=== PATIENT | female | born 1970 ===

== ENCOUNTER 2016-10-04 03:03 | Emergency (ER) | payer BC ==
[2016-10-04 03:03] VITALS: BMI 25.6
[2016-10-04 03:18] VITALS: TEMP 98
--- NOTE | 2016-10-04 03:25 | ED PDOC ---
Arrival/HPI - General Chief Complaint: Chest Pain Time Seen by Provider: 10/04/16 03:13 Historian: Patient - History of Present Illness Narrative History of Present Illness (Text): 10/04/16 03:22 Delma Rodriguez is a 46 year old female who presents to the Emergency department complaining of right-sided chest pain/RUQ pain. Patient states she has been experiencing gradually worsening RUQ pain with associated chest pain. Patient states pain is worse with deep inspiration. Patient states she had chicken and chocolate cake for dinner yesterday evening. Patient denies any history of tobacco abuse, fever, chills, shortness of breath, nausea, vomiting, diarrhea, urinary symptoms, back pain, neck pain, headache, dizziness , or any other complaints. Time/Duration: Other (tonight) Symptom Onset: Gradual Symptom Course: Worsening Activities at Onset: Rest, Light Context: Home Past Medical History - Provider Review Nursing Documentation Reviewed: Yes - Infectious Disease Hx of Infectious Diseases: None - Past Medical History Past Medical History: No Previous - Cardiac Hx Cardiac Disorders: No Hx Pacemaker: No - Pulmonary Hx Respiratory Disorders: No - Neurological Hx Neurological Disorder: No Hx Paralysis: No - HEENT Hx HEENT Disorder: No - Renal Hx Renal Disorder: No - Endocrine/Metabolic Hx Endocrine Disorders: No - Hematological/Oncological Hx Blood Disorders: Yes Hx Blood Transfusions: Yes () Hx Blood Transfusion Reaction: No - Integumentary Hx Dermatological Disorder: No - Musculoskeletal/Rheumatological Hx Musculoskeletal Disorders: No - Gastrointestinal Hx Gastrointestinal Disorders: Yes Other/Comment: "bacteria in stomach" - Genitourinary/Gynecological Hx Genitourinary Disorders: No - Psychiatric Hx Depression: Yes Hx Substance Use: No - Past Surgical History Past Surgical History: No Previous - Anesthesia Hx Anesthesia: No - Suicidal Assessment Feels Threatened In Home Enviroment: No Family/Social History - Physician Review Nursing Documentation Reviewed: Yes Family/Social History: No Known Family HX Smoking Status: Never Smoked Hx Alcohol Use: No Hx Substance Use: No Hx Substance Use Treatment: No Allergies/Home Meds Allergies/Adverse Reactions: Allergies No Known Allergies Allergy (Verified 03/11/16 16:39) Home Medications: Home Meds Medication Instructions Recorded Confirmed Sertraline [Zoloft] 50 mg PO HS 03/11/16 10/04/16 traZODone [trazODONE HYDROCHLORIDE] 50 mg PO HS 03/11/16 10/04/16 Review of Systems - Physician Review All systems were reviewed & negative as marked: Yes - Review of Systems Constitutional: Normal. absent: Fevers Eyes: Normal ENT: Normal Respiratory: Normal. absent: SOB, Cough Cardiovascular: Chest Pain (+right-sided chest pain) Gastrointestinal: Abdominal Pain (+RUQ pain). absent: Diarrhea, Nausea, Vomiting Genitourinary Female: Normal. absent: Dysuria, Frequency, Hematuria, Urine Output Changes Musculoskeletal: Normal. absent: Back Pain, Neck Pain Skin: Normal. absent: Rash Neurological: Normal. absent: Headache, Dizziness Endocrine: Normal Hemo/Lymphatic: Normal Psychiatric: Normal Physical Exam Vital Signs Reviewed: Yes Vital Signs Temp Pulse Resp BP Pulse Ox 10/04/16 08:30 98 F 75 19 127/62 100 10/04/16 06:15 60 18 130/90 98 10/04/16 03:17 98 F 78 21 143/99 H 100 Temperature: Afebrile Blood Pressure: Normal Pulse: Regular Respiratory Rate: Normal Appearance: Positive for: Well-Appearing, Non-Toxic, Comfortable Pain Distress: None Mental Status: Positive for: Alert and Oriented X 3 - Systems Exam Head: Present: Atraumatic, Normocephalic Pupils: Present: PERRL Extroacular Muscles: Present: EOMI Conjunctiva: Present: Normal Mouth: Present: Moist Mucous Membranes Neck: Present: Normal Range of Motion Respiratory/Chest: Present: Clear to Auscultation, Good Air Exchange. No: Respiratory Distress, Accessory Muscle Use Cardiovascular: Present: Regular Rate and Rhythm, Normal S1, S2. No: Murmurs Abdomen: Present: Tenderness (RUQ tenderness), Normal Bowel Sounds. No: Distention, Peritoneal Signs Back: Present: Normal Inspection. No: CVA Tenderness, Midline Tenderness, Paraspinal Tenderness Upper Extremity: Present: Normal Inspection. No: Cyanosis, Edema Lower Extremity: Present: Normal Inspection. No: Edema Neurological: Present: GCS=15, CN II-XII Intact, Speech Normal Skin: Present: Warm, Dry, Normal Color. No: Rashes Psychiatric: Present: Alert, Oriented x 3, Normal Insight, Normal Concentration Medical Decision Making ED Course and Treatment: 10/04/16 03:22 Impression: 46 year old female complaining of RUQ/right-sided chest pain tonight. Plan: -- EKG -- Labs, lipase, cardiac enzymes, amylase, blood cultures -- Urinalysis -- IV fluids -- Zofran -- Protonix -- Pepcid -- Toradol -- Reassess and disposition Prior Visits: Notes and results from previous visits were reviewed. On 03/11/2016, pt was seen in the Emergency department for LLQ pain. Pt was d/c home. Progress Notes: Reviewed EKG, NSR at [address]-segment elevations or depressions, no T-wave inversions, normal intervals. Re-evaluation Time: 07:25 Reassessment Condition: Re-examined, Improved - Lab Interpretations Microbiology Results: Microbiology Results 10/04/16 04:15 Blood-Venous Blood Culture - Preliminary NO GROWTH AFTER 24 HOURS 10/04/16 03:45 Blood-Venous Blood Culture - Preliminary NO GROWTH AFTER 24 HOURS Lab Results: 10/04/16 03:45 10/04/16 03:45 Lab Results 10/04/16 04:48: Urine Color Yellow, Urine Appearance Clear, Urine pH 6.0, Ur Specific Amalia 1.020, Urine Protein Negative, Urine Glucose (UA) Negative, Urine Ketones Negative, Urine Blood Trace-lysed H, Urine Nitrate Negative, Urine Bilirubin Negative, Urine Urobilinogen 0.2, Ur Leukocyte Esterase Negative , Urine RBC Negative, Urine WBC Negative, Ur Epithelial Cells 0 - 2, Urine Bacteria Mod 10/04/16 03:45: Sodium 140, Potassium 3.5 L, Chloride 106, Carbon Dioxide 24, Anion Gap 14, BUN 19, Creatinine 0.7, Est GFR ( Amer) > 60, Est GFR (Non- Af Amer) > 60, Random Glucose 105, Calcium 9.1, Total Bilirubin 0.2, AST 34, ALT 35, Alkaline Phosphatase 79, Lactate Dehydrogenase 568, Total Creatine Kinase 116, Troponin I < 0.01, Total Protein 7.7, Albumin 4.2, Globulin 3.5, Albumin/Globulin Ratio 1.2, Amylase 106, Lipase 231 10/04/16 03:45: PT 10.4, INR 0.96, APTT 24.7 10/04/16 03:45: WBC 9.0 D, RBC 3.91, Hgb 11.6 L, Hct 34.6 L, MCV 88.5, MCH 29.7 , MCHC 33.5, RDW 13.1, Plt Count 298, MPV 9.3, Gran % 64.5, Lymph % (Auto) 27.9 , [place] % (Auto) 6.8 H, Eos % (Auto) 0.6 L, Baso % (Auto) 0.2, Gran # 5.80, Lymph # 2.5, [place] # 0.6, Eos # 0.1, Baso # 0.02 I have reviewed the lab results: Yes - RAD Interpretation Radiology Orders: 10/04/16 04:53 ABD & PELVIS W/O PO OR IV CONT [CT] Stat - EKG Interpretation Interpreted by ED Physician: Yes Type: 12 lead EKG - Medication Orders Current Medication Orders: Discontinued Medications Famotidine (Pepcid) 20 mg IVP STAT STA Stop: 10/04/16 03:38 Last Admin: 10/04/16 04:13 Dose: 20 mg Sodium Chloride (Sodium Chloride 0.9%) 1,000 mls @ 100 mls/hr IV .Q10H STA Stop: 10/04/16 13:36 Last Admin: 10/04/16 04:13 Dose: 100 mls/hr Ketorolac Tromethamine (Toradol) 30 mg IVP STAT STA Stop: 10/04/16 03:38 Last Admin: 10/04/16 04:13 Dose: 30 mg Re-Assess: TAMEKA Pain Assessment Document 10/04/16 05:13 GMI (Rec: 10/04/16 08:56 GMI [id number]) Pain Reassessment Is this a pain reassessment? Yes Sleep Is patient sleeping during reassessment? No Presence of Pain Presence of Pain No Ondansetron HCl (Zofran Inj) 4 mg IVP STAT STA Stop: 10/04/16 03:38 Last Admin: 10/04/16 04:14 Dose: 4 mg Pantoprazole Sodium (Protonix Inj) 40 mg IVP STAT STA Stop: 10/04/16 03:48 Last Admin: 10/04/16 04:14 Dose: 40 mg Potassium Chloride (K-Dur 20 Meq Er Tab) 40 meq PO STAT STA Stop: 10/04/16 06:56 Last Admin: 10/04/16 07:25 Dose: 40 meq - Scribe Statement The provider has reviewed the documentation as recorded by the Candice Jean Baptiste Provider Scribe Attestation: All medical record entries made by the Scribe were at my direction and personally dictated by me. I have reviewed the chart and agree that the record accurately reflects my personal performance of the history, physical exam, medical decision making, and the department course for this patient. I have also personally directed, reviewed, and agree with the discharge instructions and disposition. Disposition/Present on Arrival - Present on Arrival Any Indicators Present on Arrival: No History of DVT/PE: No History of Uncontrolled Diabetes: No Urinary Catheter: No History of Decub. Ulcer: No History Surgical Site Infection Following: None - Disposition Have Diagnosis and Disposition been Completed?: Yes Diagnosis: Abdominal pain Disposition: HOME/ ROUTINE Disposition Time: 07:25 Condition: GOOD Discharge Instructions (ExitCare): Acute Abdominal Pain (ED) Prescriptions: Pantoprazole Sodium [Protonix] 40 mg PO DAILY #14 ect Pantoprazole Sodium [Protonix] 40 mg PO DAILY #14 ect Forms: [employer] (Chinese)
[2016-10-04] MEDS ORDERED: Sodium Chloride 0.9% 1,000 ML IV STA (03:37)
[2016-10-04] MEDS ORDERED: Pantoprazole 40 MG in Sodium Chloride 0.9% 100 ML IV STA (03:37)
[2016-10-04 04:06] LABS: BASO # 0.02 K/mm3 (0.0-2.0); BASO % 0.2 % (0.0-3.0); EOS # 0.1 (0.0-0.7); EOS % 0.6 % (1.5-5.0); GRAN # 5.8 (1.4-6.5); GRAN % 64.5 % (50.0-68.0); HEMATOCRIT 34.6 % (36.0-48.0); LYMPH # 2.5 (1.2-3.4); LYMPH % 27.9 % (22.0-35.0); MEAN CELL VOLUME 88.5 fl (80.0-105.0); MEAN CORPUSCULAR HEMOGLOBIN 29.7 pg (25.0-35.0); MEAN CORPUSCULAR HGB CONC 33.5 g/dl (31.0-37.0); MEAN PLATELET VOLUME 9.3 fl (7.0-11.0); MONO # 0.6 (0.1-0.6); MONO % 6.8 % (1.0-6.0); RED CELL DISTRIBUTION WIDTH 13.1 % (11.5-14.5)
[2016-10-04 04:11] LABS: INR 0.96 (0.93-1.08); PARTIAL THROMBOPLASTIN TIME 24.7 Seconds (23.7-30.8)
[2016-10-04 04:15] LABS: ALB/GLOB RATIO 1.2 (1.1-1.8); ALKALINE PHOSPHATASE 79 U/L (38-133); ALT/SGPT 35 U/L (7-56); AMYLASE 106 U/L (35-125); AST/SGOT 34 U/L (15-39); BILIRUBIN,TOTAL 0.2 mg/dL (0.2-1.3); BLOOD UREA NITROGEN 19 mg/dL (7-21); CALCIUM 9.1 mg/dL (8.4-10.5); CARBON DIOXIDE 24 mmol/L (21-33); CHLORIDE 106 mmol/L (98-107); GFR AFRICAN-AMERICAN > 60; GLUCOSE,RANDOM 105 mg/dL (70-110); LIPASE 231 U/L (23-300); POTASSIUM 3.5 mmol/L (3.6-5.0); SODIUM 140 mmol/L (132-148); TOTAL PROTEIN 7.7 g/dL (5.8-8.3)
[2016-10-04 04:31] LABS: TROPONIN I < 0.01 ng/mL
[2016-10-04 05:02] LABS: URINE BILIRUBIN NEGATIVE (NEGATIVE); URINE BLOOD TRACE-LYSED (NEGATIVE); URINE GLUCOSE (UA) NEGATIVE (NEGATIVE); URINE KETONE NEGATIVE (NEGATIVE); URINE LEUKOCYTE ESTERASE NEGATIVE Leu/uL (NEGATIVE); URINE PROTEIN NEGATIVE mg/dL (<30 mg/dL); URINE UROBILINOGEN 0.2 E.U./dL (<1 E.U./dL)
[2016-10-04 05:19] LABS: URINE APPEARANCE CLEAR (CLEAR); URINE COLOR YELLOW (YELLOW)
[2016-10-04 05:53] LABS: URINE BACTERIA MOD (NEG); URINE EPITHELIAL CELLS 0 - 2 /hpf (0-5); URINE RBC NEGATIVE /hpf (0-2); URINE WBC NEGATIVE /hpf (0-6)
[2016-10-04] MEDS ORDERED: Potassium Chloride 20 mEq ER Tab PO STA (06:55)
--- NOTE | 2016-10-04 07:23 | CT ---
EXAM: CT Abdomen and Pelvis Without Intravenous Contrast EXAM DATE/TIME: 10/04/2016 4:53 AM CLINICAL HISTORY: 46 years old, female; Pain; Abdominal pain; Generalized; Additional info: Abd pain TECHNIQUE: Axial computed tomography images of the abdomen and pelvis without intravenous contrast. All CT scans at this facility use one or more dose reduction techniques, viz.: automated exposure control; ma/kV adjustment per patient size (including targeted exams where dose is matched to indication; i.e. head); or iterative reconstruction technique. Coronal and sagittal reformatted images were created and reviewed. COMPARISON: CT - ABD PELVIS PO IV CONTRAST 03/11/2016 7:58:24 PM FINDINGS: Lower thorax: Trace right pleural effusion. Small hiatal hernia. ABDOMEN: Liver: Unremarkable. Gallbladder and bile ducts: Unremarkable. No calcified stones. No ductal dilation. Pancreas: Unremarkable. No ductal dilation. Spleen: Unremarkable. No splenomegaly. Adrenals: Unremarkable. No mass. Kidneys and ureters: Unremarkable. No obstructing stones. No hydronephrosis. Stomach and bowel: Prominent gastric antral wall again noted. Collapsed stomach. No dilatation of small or large bowel. Moderate amount of fecal material from cecum to the proximal descending colon. Scattered small hyperdense foci in distal small bowel and ascending colon, appearance of ingested pills and/or antacids. No mucosal edema. Appendix: Normal. PELVIS: Bladder: Unremarkable. No stones. Reproductive: Unremarkable as visualized. ABDOMEN and PELVIS: Intraperitoneal space: Unremarkable. No free air. No significant fluid collection. Bones/joints: No acute fracture. Soft tissues: Unremarkable. Vasculature: Unremarkable. No abdominal aortic aneurysm. Lymph nodes: No enlarged lymph nodes. IMPRESSION: 1. Prominent wall of the gastric antrum, may be from under distention, clinical correlation to exclude antritis. 2. Trace right pleural effusion. 3. Moderate fecal retention.
[2016-10-04 08:55] VITALS: BP 127/62; PULSE 75; RESP 19; O2SAT 100
--- NOTE | 2016-10-04 10:53 | CARD ---
APPROVED REPORT EKG Measurement Heart [id number] <Conclusion> Normal sinus rhythm Normal ECG
== END 2016-10-04 08:57 | disposition home or self-care (01) ==
LOC: ED 03:03
DX: R10.11 Right upper quadrant pain (principal)
CPT/HCPCS: 74176; 80053; 81001; 82150; 82550; 83615; 83690; 84484; 85025; 85610; 85730; 87040; 93005; 96361; 96374; 96375; 99284; C9113; J1885; J2405; J7040

== ENCOUNTER 2017-04-22 14:14 | Inpatient (IN) | payer BC ==
--- NOTE | 2017-04-22 14:52 | ED PDOC ---
Arrival/HPI - General Time Seen by Provider: 04/22/17 14:46 Historian: Patient - History of Present Illness Narrative History of Present Illness (Text): 04/22/17 14:51 47 y/o female, pmh including gastric ulcer with last endoscopy performed on 2015, nkda, c/o epigastric abdominal pain with nausea/vomiting x 2 weeks. Pt. stated that she has on and off epigastric pain for the past 2 weeks, didn't take any PPI, had 3 episodes of bright red bloody vomiting which she was seen at the [facility] and discharged home, stated that she still has the epigastric pain, bright red vomiting yesterday and today, no fever or chills, no night sweat, no palpitation, no other medical or psychological complaints. Past Medical History - Provider Review Nursing Documentation Reviewed: Yes - Infectious Disease Hx of Infectious Diseases: None - Past Medical History Past Medical History: No Previous - Cardiac Hx Cardiac Disorders: No Hx Pacemaker: No - Pulmonary Hx Respiratory Disorders: No - Neurological Hx Neurological Disorder: No Hx Paralysis: No - HEENT Hx HEENT Disorder: No - Renal Hx Renal Disorder: No - Endocrine/Metabolic Hx Endocrine Disorders: No - Hematological/Oncological Hx Blood Disorders: Yes Hx Blood Transfusions: Yes () Hx Blood Transfusion Reaction: No - Integumentary Hx Dermatological Disorder: No - Musculoskeletal/Rheumatological Hx Musculoskeletal Disorders: No - Gastrointestinal Hx Gastrointestinal Disorders: Yes Other/Comment: "bacteria in stomach" - Genitourinary/Gynecological Hx Genitourinary Disorders: No - Psychiatric Hx Depression: Yes Hx Substance Use: No - Past Surgical History Past Surgical History: No Previous - Anesthesia Hx Anesthesia: No - Suicidal Assessment Feels Threatened In Home Enviroment: No Family/Social History - Physician Review Nursing Documentation Reviewed: Yes Family/Social History: Unknown Family HX Smoking Status: Never Smoked Hx Alcohol Use: No Hx Substance Use: No Hx Substance Use Treatment: No Allergies/Home Meds Allergies/Adverse Reactions: Allergies No Known Allergies Allergy (Verified 03/11/16 16:39) Home Medications: Home Meds Medication Instructions Recorded Confirmed Hydroxyzine Pamoate [Vistaril] 1 tab PO DAILY 04/22/17 04/22/17 Lisdexamfetamine Dimesylate 1 tab PO DAILY 04/22/17 04/22/17 [Vyvanse] Ondansetron ODT [Zofran ODT] 1 tab PO DAILY 04/22/17 04/22/17 buPROPion SR [Wellbutrin SR 150 MG] 1 tab PO DAILY 04/22/17 04/22/17 Review of Systems - Review of Systems Constitutional: absent: Fatigue, Fevers Eyes: absent: Vision Changes ENT: absent: Hearing Changes Respiratory: absent: SOB, Cough Cardiovascular: absent: Chest Pain Gastrointestinal: Abdominal Pain, Nausea, Vomiting Musculoskeletal: absent: Arthralgias, Back Pain Skin: absent: Rash, Pruritis Psychiatric: absent: Anxiety, Depression, Suicidal Ideation Physical Exam Vital Signs Reviewed: Yes Vital Signs Temp Pulse Resp BP Pulse Ox 04/22/17 16:15 79 18 121/79 98 04/22/17 15:27 98.1 F 83 18 123/82 98 Temperature: Afebrile Blood Pressure: Normal Pulse: Regular Respiratory Rate: Normal Appearance: Positive for: Well-Appearing, Non-Toxic, Comfortable Pain Distress: Mild Mental Status: Positive for: Alert and Oriented X 3 - Systems Exam Head: Present: Atraumatic, Normocephalic Pupils: Present: PERRL Extroacular Muscles: Present: EOMI Conjunctiva: Present: Normal Mouth: Present: Moist Mucous Membranes Neck: Present: Normal Range of Motion Respiratory/Chest: Present: Clear to Auscultation, Good Air Exchange. No: Respiratory Distress, Accessory Muscle Use Cardiovascular: Present: Regular Rate and Rhythm, Normal S1, S2. No: Murmurs Abdomen: Present: Tenderness (epigastric tenderness), Normal Bowel Sounds. No: Distention, Peritoneal Signs Rectal: Present: Hemorrhoids, Normal Rectal Tone, Other (Female Blacking Machine Operator black pickler Yoon Porch, guaiac is positive. ). No: Rectal Tenderness, Gross Blood, Melena, Fissures, Nodule/Mass/Lesions Back: Present: Normal Inspection Upper Extremity: Present: Normal Inspection. No: Cyanosis, Edema Lower Extremity: Present: Normal Inspection. No: Edema Neurological: Present: GCS=15, CN II-XII Intact, Speech Normal Skin: Present: Warm, Dry, Normal Color. No: Rashes Psychiatric: Present: Alert, Oriented x 3, Normal Insight, Normal Concentration Medical Decision Making ED Course and Treatment: 04/22/17 15:57 -labs -ekg -cxr and gallbladder sonogram -Guaiac test -IVF/protonix/zofran -observe and reassess 04/22/17 17:30 -EKG: NSR @ 79 BPM, no ST elevation or depression, T wave inversion on lead @ III, compared with previous ekg. -Chest xray: no active disease -Gallbladder sonogram Echogenic liver may be seen in setting of hepatic parenchymal disease or fatty infiltration. Question 1.7 x 1.1 x 1.4 cm cyst versus fluid near the pancreatic head; recommend CT with oral and IV contrast for further evaluation. -Labs are non-significant except hgb 11.4 from 11.6 -Guaiac is positive but no active bleeding at this time, IV protonix ordered, will admit the patient for observation with cbc trending. -I discussed all the lab result including the sonogram result including the possible pancreatic cyst. -Pt.'s pmd is dr. roly garcia as per patient, paging Dr. Holguin for admission for GI bleeding and anemia, 04/22/17 17:40 -I discussed the case to Dr. Holguin, discussed about the case/labs/radiology study, agreed on this admission with Dr. Dyllan Peace (GI) for routine consult. -I discussed the case with Dr. Singh, discussed about the case/labs/radiology study, she will put in the admission. - Lab Interpretations Lab Results: 04/22/17 15:53 04/22/17 15:53 Lab Results 04/22/17 15:53: WBC 8.9, RBC 3.84, Hgb 11.4 L, Hct 35.3 L, MCV 91.9 D, MCH 29.7 , MCHC 32.3, RDW 13.7, Plt Count 317, MPV 9.0, Gran % 63.1, Lymph % (Auto) 27.7 , [place] % (Auto) 8.4 H, Eos % (Auto) 0.7 L, Baso % (Auto) 0.1, Gran # 5.64, Lymph # (Auto) 2.5, [place] # (Auto) 0.8 H, Eos # (Auto) 0.1, Baso # (Auto) 0.01 04/22/17 15:53: Blood Type Pending, Antibody Screen Pending, BBK History Checked No verified bt 04/22/17 15:53: Sodium 143, Potassium 4.4, Chloride 106, Carbon Dioxide 28, Anion Gap 14, BUN 11, Creatinine 0.7, Est GFR ( Amer) > 60, Est GFR (Non- Af Amer) > 60, Random Glucose 102, Calcium 9.5, Magnesium 2.2, Total Bilirubin 0.3, AST 29, ALT 45, Alkaline Phosphatase 78, Lactate Dehydrogenase 623, Total Creatine Kinase 107, Troponin I < 0.01, Total Protein 7.9, Albumin 4.0, Globulin 3.9, Albumin/Globulin Ratio 1.0 L 04/22/17 15:53: PT 11.9, INR 1.04, APTT 28.7 - RAD Interpretation Radiology Orders: 04/22/17 15:50 CHEST PORTABLE [RAD] Stat 04/22/17 15:53 GALL BLADDER [US] Stat Chest xray: no active pulmonary disease Gallbladder sonogram: GALLBLADDER: No gallstones. No gallbladder wall thickening or pericholecystic edema. Negative sonographic Segovia's sign as assessed by the tobacco prizer. COMMON BILE DUCT: Measures 2 mm. PANCREAS: Not well-visualized. Question 1.7 x 1.1 x 1.4 cm cyst versus fluid near the pancreatic head; recommend CT for further evaluation. RIGHT KIDNEY: Measures approximately 9.8 x 5.5 x 5.3 cm. No obstructing calculus or hydronephrosis identified. AORTA: Limited visualization appears grossly unremarkable. IVC: Limited visualization appears grossly unremarkable. OTHER FINDINGS: None . IMPRESSION: Echogenic liver may be seen in setting of hepatic parenchymal disease or fatty infiltration. Question 1.7 x 1.1 x 1.4 cm cyst versus fluid near the pancreatic head; recommend CT with oral and IV contrast for further evaluation. Perinatal Breastfeeding Assistant: Radiologist - EKG Interpretation EKG Interpretation (Text): 04/22/17 16:17 NSR @ 79 BPM, no ST elevation or depression, T wave inversion on lead @ III, compared with previous ekg. Interpreted by ED Physician: Yes Type: 12 lead EKG - Medication Orders Current Medication Orders: Sodium Chloride (Sodium Chloride 0.9%) 1,000 mls @ 100 mls/hr IV .Q10H STALIN Last Admin: 04/22/17 16:11 Dose: 100 mls/hr eMAR Start Stop Document 04/22/17 16:11 GMD (Rec: 04/22/17 16:11 GMD [id number]) Intravenous Solution Start Date 04/22/17 Start Time 16:11 Discontinued Medications Famotidine (Pepcid) 20 mg IVP STAT STA Stop: 04/22/17 16:21 Last Admin: 04/22/17 17:08 Dose: 20 mg IVP Administration Document 04/22/17 17:08 GMD (Rec: 04/22/17 17:08 GMD [id number]) Charges for Administration # of IVP Administrations 1 Ondansetron HCl (Zofran Inj) 4 mg IVP STAT STA Stop: 04/22/17 16:21 Last Admin: 04/22/17 17:08 Dose: 4 mg IVP Administration Document 04/22/17 17:08 GMD (Rec: 04/22/17 17:08 GMD [id number]) Charges for Administration # of IVP Administrations 1 Pantoprazole Sodium (Protonix Inj) 40 mg IVP STAT STA Stop: 04/22/17 17:11 Last Admin: 04/22/17 17:39 Dose: 40 mg IVP Administration Document 04/22/17 17:39 GMD (Rec: 04/22/17 17:39 GMD [id number]) Charges for Administration # of IVP Administrations 1 - PA / [employer] / Resident Statement MD/DO has reviewed & agrees with the documentation as recorded. Disposition/Present on Arrival - Present on Arrival Any Indicators Present on Arrival: No History of DVT/PE: No History of Uncontrolled Diabetes: No Urinary Catheter: No History of Decub. Ulcer: No History Surgical Site Infection Following: None - Disposition Have Diagnosis and Disposition been Completed?: Yes Diagnosis: GI bleed, Gastric ulcer, Anemia, Pancreatic cyst Disposition: HOSPITALIZED Disposition Time: 15:59 Patient Plan: Admission, Observation, Telemetry Patient Problems: Current Active Problems Problem Status Onset GI bleed Acute Gastric ulcer Acute Anemia Acute Pancreatic cyst Acute Condition: STABLE [facility] - Follow up with primary
[2017-04-22 15:31] VITALS: BMI 34.7
[2017-04-22] MEDS: Sodium Chloride 0.9% 1,000 ML IV SCH (16:11)
[2017-04-22 16:14] LABS: BASO # 0.01 K/mm3 (0.0-2.0); BASO % 0.1 % (0.0-3.0); EOS # 0.1 (0.0-0.7); EOS % 0.7 % (1.5-5.0); GRAN # 5.64 (1.4-6.5); GRAN % 63.1 % (50.0-68.0); HEMOGLOBIN 11.4 g/dL (12.0-16.0); LYMPH # 2.5 (1.2-3.4); LYMPH % 27.7 % (22.0-35.0); MEAN CELL VOLUME 91.9 fl (80.0-105.0); MEAN CORPUSCULAR HEMOGLOBIN 29.7 pg (25.0-35.0); MEAN CORPUSCULAR HGB CONC 32.3 g/dl (31.0-37.0); MONO # 0.8 (0.1-0.6); MONO % 8.4 % (1.0-6.0); RBC 3.84 10^6/uL (3.5-6.1); RED CELL DISTRIBUTION WIDTH 13.7 % (11.5-14.5); WHITE BLOOD COUNT 8.9 10^3/ul (4.5-11.0)
[2017-04-22 16:19] LABS: ALT/SGPT 45 U/L (7-56); AST/SGOT 29 U/L (14-36); BLOOD UREA NITROGEN 11 mg/dL (7-21); CALCIUM 9.5 mg/dL (8.4-10.5); GFR AFRICAN-AMERICAN > 60; GFR NON-AFRICAN AMERICAN > 60
--- NOTE | 2017-04-22 16:29 | RAD ---
HISTORY: medical clearance COMPARISON: 04/09/2016. FINDINGS: LUNGS: The lungs are well inflated and clear. PLEURA: No significant pleural effusion identified, no pneumothorax apparent. CARDIOVASCULAR: Normal. OSSEOUS STRUCTURES: No significant abnormalities. VISUALIZED UPPER ABDOMEN: Normal. OTHER FINDINGS: None. IMPRESSION: No active pulmonary disease.
[2017-04-22 16:31] LABS: TROPONIN I < 0.01 ng/mL
[2017-04-22 16:34] LABS: INR 1.04 (0.93-1.08); PARTIAL THROMBOPLASTIN TIME 28.7 Seconds (25.1-36.5); PROTHROMBIN TIME 11.9 SECONDS (9.4-12.5)
--- NOTE | 2017-04-22 17:21 | US ---
HISTORY: epigastric pain x 2 weeks COMPARISON: CT abdomen and pelvis without contrast performed 10/04/16 TECHNIQUE: Sonographic evaluation of the right upper quadrant of the abdomen. FINDINGS: Examination limited by bowel gas. LIVER: Measures 14.7 cm in length. Echogenic liver may be seen in setting of hepatic parenchymal disease or fatty infiltration. No focal hepatic mass identified. The main portal vein appears patent with normal directional flow. No intrahepatic bile duct dilatation. GALLBLADDER: No gallstones. No gallbladder wall thickening or pericholecystic edema. Negative sonographic Segovia's sign as assessed by the parking lot chauffeur. COMMON BILE DUCT: Measures 2 mm. PANCREAS: Not well-visualized. Question 1.7 x 1.1 x 1.4 cm cyst versus fluid near the pancreatic head; recommend CT for further evaluation. RIGHT KIDNEY: Measures approximately 9.8 x 5.5 x 5.3 cm. No obstructing calculus or hydronephrosis identified. AORTA: Limited visualization appears grossly unremarkable. IVC: Limited visualization appears grossly unremarkable. OTHER FINDINGS: None . IMPRESSION: Echogenic liver may be seen in setting of hepatic parenchymal disease or fatty infiltration. Question 1.7 x 1.1 x 1.4 cm cyst versus fluid near the pancreatic head; recommend CT with oral and IV contrast for further evaluation.
--- NOTE | 2017-04-22 17:53 | CARD ---
APPROVED REPORT EKG Measurement Heart [id number] <Conclusion> Normal sinus rhythm with sinus arrhythmia Normal ECG
[2017-04-23] MEDS: Sodium Chloride 0.9% 1,000 ML IV SCH ×2 (02:12→14:38)
[2017-04-23 07:28] LABS: BASO # 0.01 K/mm3 (0.0-2.0); BASO % 0.2 % (0.0-3.0); EOS # 0.1 (0.0-0.7); EOS % 1.5 % (1.5-5.0); GRAN # 3.04 (1.4-6.5); GRAN % 56.1 % (50.0-68.0); HEMOGLOBIN 10.9 g/dL (12.0-16.0); LYMPH # 1.8 (1.2-3.4); LYMPH % 33.5 % (22.0-35.0); MEAN CELL VOLUME 91.7 fl (80.0-105.0); MEAN CORPUSCULAR HEMOGLOBIN 29.1 pg (25.0-35.0); MEAN CORPUSCULAR HGB CONC 31.8 g/dl (31.0-37.0); MEAN PLATELET VOLUME 9.3 fl (7.0-11.0); MONO # 0.5 (0.1-0.6); MONO % 8.7 % (1.0-6.0); RBC 3.74 10^6/uL (3.5-6.1); RED CELL DISTRIBUTION WIDTH 13.8 % (11.5-14.5); WHITE BLOOD COUNT 5.4 10^3/ul (4.5-11.0)
[2017-04-23 07:44] LABS: IRON 54 ug/dL (45-180)
[2017-04-23 07:59] LABS: BLOOD UREA NITROGEN 6 mg/dL (7-21); CALCIUM 8.9 mg/dL (8.4-10.5); GFR AFRICAN-AMERICAN > 60; GFR NON-AFRICAN AMERICAN > 60
[2017-04-23 08:15] LABS: % IRON SATURATION 22 % (20-55); TOTAL IRON BINDING CAPACITY 240 ug/dL (265-497)
[2017-04-23] MEDS: buPROPion SR 150 MG TABLET PO SCH (09:22)
--- NOTE | 2017-04-23 10:47 | CON ---
DATE:04/23/2017 REASON FOR CONSULTATION: Abdominal pain,vomiting, coffee-ground vomitus; and upper GI bleeding. HISTORY OF PRESENT ILLNESS: This is a 47-year-old patient with past medical history of gastric ulcer disease, H. pylori was positive, treated; had endoscopy in November of 2014, found to have gastric ulcer; had H. pylori positive treated; had a repeat endoscopy done three months later on, was found to have a healed ulcer H. pylori negative. Patient was doing well until about more than two to three weeks ago, noticed episodes of nausea and vomiting and some epigastric discomfort. Patient noticed three episodes of coffee-ground vomitus. Patient was in the Emergency Room in [facility], was evaluated and sent home to be followed up as an outpatient. Patient denies any melena. Other past medical history is significant as above. History of anxiety, depression. FAMILY HISTORY: Noncontributory. SOCIAL HISTORY: Denies alcohol. Denies smoking. ALLERGIES: NO KNOWN DRUG ALLERGIES. REVIEW OF SYSTEMS: Positive as above. Other systems reviewed. PHYSICAL EXAMINATION GENERAL: Patient is lying on the bed, not in acute distress. VITAL SIGNS: Temperature 98.1, blood pressure 122/72, pulse 80, respirations 16, O2 saturation 99. HEENT: Atraumatic, anicteric. NECK: Supple. HEART: S1, S2 heard. LUNGS: Bilateral air entry present. ABDOMEN: Soft. There is no mass palpable, mild tenderness on deep palpation in the epigastric area, otherwise unremarkable. EXTREMITIES: No edema. No cyanosis. NEUROLOGIC: Alert and oriented. Moves all extremities. LABORATORY DATA: Hemoglobin 11.4, hematocrit 35.3, WBC 8.9, platelets 317,000. LFTs are essentially unremarkable. Patient had, in the previous day, the ultrasound scan of the abdomen done which was negative. Patient did have the CT scan done a year ago, in 2016 which was also reviewed. IMPRESSION: This 47-year-old patient with past medical history of gastric ulcer; Helicobacter pylori positive, treated. With repeat endoscopy, healed ulcerations with negative Helicobacter pylori, admitted with episodes of coffee-ground vomitus. Hemoglobin appears stable. She had several episodes of vomiting. Differential diagnosis include ulcer disease, erosive esophagitis and Little-Rao to be considered. 1 Patient would benefit from upper gastrointestinal endoscopy. It will be scheduled in the morning. 2. Protonix 40 mg q. 12 hourly. 3. Close followup of the hemoglobin and hematocrit. Other comorbidities include anxiety, depression. Thank you very much for allowing us to participate in the care of this patient. I have discussed the case with Dr. Holguin earlier today. Kobi Mijares MD [facility]
[2017-04-23 12:22] LABS: FERRITIN 96.2 ng/mL
[2017-04-23] MEDS ORDERED: Propofol 10 mg/ml Inj (20 ML) ONE (17:08)
[2017-04-23] MEDS ORDERED: Sodium Chloride 0.9% 1,000 ML IV SCH (17:30)
[2017-04-23 17:36] VITALS: O2SAT 98
[2017-04-24] MEDS: Sodium Chloride 0.9% 1,000 ML IV SCH ×2 (02:00→08:44)
[2017-04-24 06:19] VITALS: TEMP 98.1
[2017-04-24] MEDS ORDERED: Gadodiamide 287 MG/ML VIAL (15ML) IV ONE (09:37)
[2017-04-24] MEDS: buPROPion SR 150 MG TABLET PO SCH (10:56)
--- NOTE | 2017-04-24 11:31 | MRI ---
MRI abdomen without/with IV contrast MRCP Indication: Attention pancreas, saw No, pancreatic cyst, negative CT Technique: Multiplanar, multi sequence magnetic resonance images of the abdomen were obtained without and with the administration of intravenous gadolinium using a multi phase abdomen protocol. Rotating maximum intensity projection images of the biliary system were generated. A total of 12/1995 images submitted for review Comparison: CT abdomen and pelvis without contrast performed 10/04/16, gallbladder ultrasound performed 04/22/17 Findings: Hepatic steatosis. The gallbladder appears unremarkable. There is no intrahepatic biliary ductal dilatation. The common bile duct appears within normal limits in caliber and tapers distally. The pancreatic duct appears within normal limits of caliber. No filling defects are seen in the common bile duct or pancreatic duct. The spleen, pancreas, and adrenal glands appear unremarkable. The kidneys enhance symmetrically. No evidence of hydronephrosis or obstructing calculus. No bulky adenopathy identified. Small hiatal hernia/distal esophageal wall thickening. Limited views of the inferior thorax appear unremarkable. Impression: Hepatic steatosis. No filling defects seen within the common bile duct which appears within normal limits of caliber.
[2017-04-24 12:25] VITALS: BP 120/74; RESP 21
[2017-04-24 14:44] VITALS: PULSE 85
--- NOTE | 2017-04-27 00:27 | PN ---
DATE: 04/23/2017 FOLLOWUP NOTE SUBJECTIVE: She is comfortable in bed, in no acute distress. No vomiting. No nausea. No dark-colored stools. No bright red blood. No hematemesis. EGD done today showed gastric ulcer with a clean base in the gastric antrum, grade A esophagitis. Multiple biopsies were taken. Denies any chest pain. REVIEW OF SYSTEMS: As per HPI. Rest of 12-point review of systems reviewed negative. PHYSICAL EXAMINATION: GENERAL: Comfortable in bed, in no acute distress. VITAL SIGNS: Temperature 98.7, heart rate 80 per minute, respiratory rate 18 per minute. HEENT: Oral mucosa moist. NECK: Supple. No lymphadenopathy. CHEST: Air entry present and equal bilaterally. No added sounds. CARDIOVASCULAR: S1, S2 normal. No murmur. No gallop. ABDOMEN: Soft, nontender. No hepatosplenomegaly. EXTREMITIES: No edema. PATIENT PORTAL REPRESENTATIVE: Alert, oriented x3. . LABORATORY DATA: White count 5.4, hemoglobin 10.8, hematocrit 34.5, platelet 312. Sodium 143, potassium 4.2, creatinine 0.7. Iron 54, saturation 22. LFTs within normal limits. MEDICATIONS: IV fluid 80 mL an hour, Wellbutrin 150 mg daily, Pepcid 20 mg, Zofran p.r.n., Protonix 40 mg IV daily. ASSESSMENT: 1. Gastric ulcer. 2. Gastrointestinal bleed. 3. Anemia. 4. Depression. PLAN: She will need PPI for a month 40 mg p.o. b.i.d. as per GI recommendations. She can resume the regular diet. There was questionable finding on ultrasound of whether pancreatic cyst. MRCP is planned for tomorrow. Consultation of Dr. Mijares noted. Renal functions within normal limits. A.m. labs ordered. Iron studies normal. Niurka Holguin MD
--- NOTE | 2017-04-27 00:37 | DS ---
DISCHARGE DATE: 04/24/2017 DISCHARGE DIAGNOSES: 1. Gastrointestinal bleed, hematemesis. 2. Anemia. 3. Gastric ulcer. 4. Depression. HOSPITAL COURSE: The patient was admitted with hematemesis. Endoscopy done during hospitalization by Dr. Mijares showed gastric ulcer with clean base. Possibility of Martinez esophagus. Multiple biopsies taken. No active bleeding was found. Her hemoglobin remained stable during hospitalization. Did not require blood transfusion. There was a questionable peripancreatic cyst on ultrasound. MRCP done, which did not show any cyst. The patient is being discharged in stable condition. PHYSICAL EXAMINATION ON DISCHARGE: GENERAL: Comfortable in bed, in no acute distress. VITAL SIGNS: Temperature 97.8, heart rate 80 per minute, respiratory rate 18 per minute. HEENT: Oral mucosa moist. NECK: Supple. No lymphadenopathy. CHEST: Air entry present and equal bilaterally. No added sounds. CARDIOVASCULAR: S1, S2 normal. No murmur. No gallop. ABDOMEN: Soft, nontender. No hepatosplenomegaly. EXTREMITIES: No edema. SPINE: Nontender. CONDITION ON DISCHARGE: Stable. DISPOSITION: Discharge home. HOME MEDICATION: Protonix 40 mg p.o. b.i.d. Continue home medications. Follow up with Dr. Mijares in 1 week. Follow up with in 1 week. DIET: Regular diet. Time spent on preparing discharge and coordinating care 60 minutes. Niurka Holguin MD
--- NOTE | 2017-04-27 00:57 | HP ---
HISTORY OF PRESENT ILLNESS: Ms. Rahman is a 47-year-old female admitted to the hospital with bright red vomiting for past few days. She also has abdominal pain. She was seen by [facility] ER and was discharged. She has history of gastric ulcer. Last endoscopy was in 02/2015. Denies any shortness of breath. No chest pain. No nausea, no vomiting. Ultrasound of the abdomen was unremarkable, done in the ER. PAST MEDICAL HISTORY: Gastric ulcer and history of blood transfusion in 1997. History of depression. PAST SURGICAL HISTORY: None. FAMILY HISTORY: Noncontributory. PERSONAL HISTORY: Never smoked. No history of alcohol abuse. REVIEW OF SYSTEMS: As per HPI. Rest of 12-point review of systems reviewed and negative. ALLERGIES: NO KNOWN DRUG ALLERGIES. HOME MEDICATIONS: Vistaril, , Zofran, Wellbutrin. review of systems : as per HPI, rest 12 point review system negative. PHYSICAL EXAMINATION: GENERAL: Comfortable in bed, in no acute distress. VITAL SIGNS: Temperature 98, 1, heart rate is 83 per minute, respiratory 18 per minute, blood pressure 123/82, pulse ox is 98% room air. HEENT: Oral mucosa pale. NECK: No lymphadenopathy. CHEST: Air entry present and equal bilaterally. No added sounds. CARDIOVASCULAR: S1 and S2 normal. No murmur. No gallop. ABDOMEN: Soft, nontender. No hepatosplenomegaly. EXTREMITIES: No edema. CENTRAL NERVOUS SYSTEM: Alert and oriented x3. No focal sensory motor deficit. SPINE: Nontender. SKIN: No petechiae, no rash. LABORATORY DATA: White count 8.9, hemoglobin 11, hematocrit 35, platelet count 317. Sodium 143, potassium 4.4, BUN 11, creatinine 0.7, glucose 102. Troponin negative. LFTs within normal limits. Ultrasound as per HPI. Chest x-ray, no infiltrate. PLAN: She will be admitted to the hospital. Tele monitoring. History of GI bleed in the past, gastric ulcer, anemia, possible pancreatic cyst. She will be evaluated by GI. Consultation by Dr. Mijraes requested. We will give IV fluids at 80 mL an hour, n.p.o. by mouth. We will monitor hemoglobin and hematocrit every 6 hours. CAT scan of the abdomen with p.o. and IV contrast ordered. Discussed with the family at bedside. Discussed with the patient. Daughter interpreted in [place] with the patient. Niurka Holguin MD [facility]
--- NOTE | 2017-04-27 11:38 | PQF ANEMIA ---
04/27/17 Dr. Holguin, Discharge diagnoses indicate patient had GI bleed, anemia and gastric ulcer. Please specify whether anemia is acute/chronic, due to GI bleed or not. Also, any etiology found for GI bleed? Thank you. Clarification of your documentation is requested to better reflect the severity of illness and intensity of treatment of your patient. Indicators present [X] Anemia [] Drop in H&H from []___ to []___ [] Hypotension [X] GI Bleed - acute [] Transfusion(s) [] Acute bleed other sites [] Tachycardia [] Surgical Procedure Blood Loss (expected not a complication) Other:[] Location in the medical record that reflects the above clinical findings: [] Treatment Provided: [] PHYSICIAN'S RESPONSE Based on your medical judgment of the clinical indicators outlined above, are you treating this patient for a known or suspected: [] Acute blood loss anemia [] Chronic blood loss anemia [X] Acute on Chronic blood loss anemia [] Anemia due to malignancy [] Anemia due to chemotherapy or radiation therapy [] Anemia of Chronic Disease, please specify: [] [] Other, please indicate type of anemia []____ [] If Unable to Determine, please check the box, sign and date. Present On Admission (POA) Indicator: [X] Present at the time of admission [] Not present at the time of admission [] Clinically Undetermined In responding to this query, please exercise your independent professional judgment. The fact that a question is asked does not imply that any particular answer is desired or expected. Thank you for your clarification on this documentation. If you have any questions please call:[ ] * Thank you, [ ] complex care nurse practitioner [facility]
== END 2017-04-24 16:29 | disposition home or self-care (01) | DRG 378 ==
LOC: ED 14:14 → ERH 17:43 → 2RNO 21:39
PROVIDERS: ADMIT Internal Medicine Medical Oncology; ATTEND Internal Medicine Medical Oncology
PROC: 0DB68ZX Excision of Stomach, Via Natural or Artificial Opening Endoscopic, Diagnostic (ICD-10-PCS; principal; 2017-04-22)
DX: K92.2 Gastrointestinal hemorrhage, unspecified (principal); D62 Acute posthemorrhagic anemia; D50.0 Iron deficiency anemia secondary to blood loss (chronic); K86.2 Cyst of pancreas; K25.4 Chronic or unspecified gastric ulcer with hemorrhage; K20.9 Esophagitis, unspecified; F32.89 Other specified depressive episodes; F41.9 Anxiety disorder, unspecified; R40.2412 Glasgow coma scale score 13-15, at arrival to emergency department

== ENCOUNTER 2017-09-17 09:12 | Day surgery (SDC) | payer BC ==
[2017-09-09 11:18] VITALS: BMI 33.6
[2017-09-17] MEDS ORDERED: Sodium Chloride 0.9% 1,000 ML IV SCH (09:45)
[2017-09-17] MEDS ORDERED: Propofol 10 mg/ml Inj (20 ML) ONE (12:01)
[2017-09-17 13:39] VITALS: RESP 16
[2017-09-17 14:02] VITALS: BP 111/74; PULSE 58; TEMP 97.8; O2SAT 100
== END 2017-09-17 14:50 | disposition home or self-care (01) ==
LOC: ENDO 09:12
PROVIDERS: ATTEND Internal Medicine Gastroenterology
DX: K25.9 Gastric ulcer, unspecified as acute or chronic, without hemorrhage or perforation (principal); K29.70 Gastritis, unspecified, without bleeding; K44.9 Diaphragmatic hernia without obstruction or gangrene; D50.9 Iron deficiency anemia, unspecified; K57.30 Diverticulosis of large intestine without perforation or abscess without bleeding; K63.89 Other specified diseases of intestine
CPT/HCPCS: 43239; 45378; 82948; 88305; 88342; J2001; J2704; J7030; J7040